=== PATIENT | female | born 1995 | race American Indian/Alaskan Native ===

== ENCOUNTER 2017-01-09 06:53 | Emergency (ER) | payer MEDICAID, SELFPAY ==
[2017-01-09 07:30] VITALS: BP 122/87
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
== END 2017-01-09 09:45 | disposition home or self-care (01) ==
LOC: FB.ED 06:53
DX: F10.129 Alcohol abuse with intoxication, unspecified (principal); F17.210 Nicotine dependence, cigarettes, uncomplicated
CPT/HCPCS: 36415; 80053; 85025; 86140; 99284; G0480

== ENCOUNTER 2017-06-28 17:05 | Emergency (ER) | payer MEDICAID, OTHER, SELFPAY ==
[2017-06-28 17:16] VITALS: BP 108/72
--- NOTE | 2017-06-28 17:25 | EDM.PDOC ---
ED HPI GENERAL MEDICAL PROBLEM - General Chief Complaint: ENT Problem Stated Complaint: SORE THROAT, BODY ACHES Time Seen by Provider: 06/28/17 17:15 Source of Information: Reports: Patient, Old Records History Limitations: Reports: No Limitations - History of Present Illness INITIAL COMMENTS - FREE TEXT/NARRATIVE: Has a mild sore throat, no fever, no rash, rhinorrhea, rare dry cough and a boil. No self tx. Has an appt to see Dr. Gu for tomorrow. Onset: Gradual Onset Date: 06/27/17 Duration: Hour(s):, Getting Worse Location: Reports: Face, Chest, Lower Extremity, Right Quality: Reports: Dull Severity: Mild Improves with: Reports: None Worsens with: Reports: None Context: Reports: Sick Contact (sister ill) Associated Symptoms: Reports: Cough, Rash (boil medial/proximal R thigh). 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) Generalized Pain Score (Numeric/FACES): 8 - Related Data Allergies Allergy/AdvReac Type Severity Reaction Status Date / Time No Known Allergies Allergy Verified 06/28/17 17:12 Home Meds: Home Meds NK [No Known Home Meds] 06/28/17 [History] Past Medical History - Past Health History Medical/Surgical History: Denies Medical/Surgical History HEENT History: Reports: None Cardiovascular History: Reports: None Respiratory History: Reports: None Gastrointestinal History: Reports: Cholelithiasis Genitourinary History: Reports: Other (See Below) Other Genitourinary History: UTI during [employer] 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: Other OB/BYN History: P-2; G-2 Other Musculoskeletal History: 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 Neurological History: Reports: None Psychiatric History: Reports: Depression, Psych Hospitalization(s), Other (See Below) Other Psychiatric History: was hospitalized when she was 13 for depression Endocrine/Metabolic History: Reports: None Hematologic History: Reports: None Immunologic History: Reports: None Oncologic (Cancer) History: Reports: None Dermatologic History: Reports: None - Infectious Disease History Infectious Disease History: Reports: None - Past Surgical History Head Surgeries/Procedures: Reports: None HEENT Surgical History: Reports: None Cardiovascular Surgical History: Reports: None Respiratory Surgical History: Reports: None GI Surgical History: Reports: None Endocrine Surgical History: Reports: None Neurological Surgical History: Reports: None Musculoskeletal Surgical History: Reports: None Oncologic Surgical History: Reports: None Dermatological Surgical History: Reports: None Social & Family History - Family History HEENT: Reports: Cataract Cardiac: Reports: Bypass, Hypertension, [place], Pacemaker, Stent Respiratory: Reports: Asthma : Reports: Dialysis OBGYN: Reports: Musculoskeletal: Reports: Fibromyalgia Endocrine/Metabolic: Reports: Diabetes, type II Oncologic: Reports: Colon - Tobacco Use Smoking Status *Q: Current Every Day Smoker Years of Tobacco use: 5 Packs/Tins Daily: 0.5 Used Tobacco, but Quit: Yes Month Tobacco Last Used: december 2015 Second Hand Smoke Exposure: Yes - Caffeine Use Caffeine Use: Reports: Energy Drinks - Alcohol Use Days Per Week of Alcohol Use: 2 Number of Drinks Per Day: 10 Total Drinks Per Week: 20 - Recreational Drug Use Recreational Drug Use: No ED ROS ENT - Review of Systems Review Of Systems: See Below Constitutional: Reports: No Symptoms HEENT: Reports: Rhinitis, Throat Pain. Denies: Dental Pain, Ear Discharge, Ear Pain, Eye Discharge, Nosebleed, Throat Swelling Respiratory: Reports: Cough. Denies: Shortness of Breath, Wheezing, Pleuritic Chest Pain, Sputum, Hemoptysis Cardiovascular: Reports: No Symptoms GI/Abdominal: Reports: No Symptoms : Reports: No Symptoms Musculoskeletal: Reports: No Symptoms Skin: Reports: Rash (Small boil to the medial/proximal R thigh), Erythema Neurological: Reports: No Symptoms Psychiatric: Reports: No Symptoms ED EXAM, ENT - Physical Exam Exam: See Below Exam Limited By: No Limitations General Appearance: Alert, WD/WN, No Apparent Distress Eye Exam: Bilateral Eye: Normal Inspection Ears: Normal External Exam, Normal Canal, Hearing Grossly Normal, Normal TMs Nose: Clear Rhinorrhea, Nasal Discharge. No: No Blood, Nasal Tenderness, Active Bleeding, Dried Blood Mouth/Throat: Normal Inspection, Normal Lips, Normal Oropharynx Head: Atraumatic, Normocephalic Neck: Normal Inspection, Supple, Non-Tender Respiratory/Chest: No Respiratory Distress, Lungs Clear, Normal Breath Sounds, No Accessory Muscle Use Cardiovascular: Regular Rate, Rhythm, No Edema GI/Abdominal: Soft Back: Normal Inspection Extremities: Normal Inspection, Normal Range of Motion, Non-Tender, No Pedal Edema. No: Pedal Edema, Joint Swelling Neurological: Alert, Oriented, CN II-XII Intact, Normal Cognition, No Motor/ Sensory Deficits Psychiatric: Normal Affect, Normal Mood Skin: Warm, Dry, Intact, Erythema (small boil to the medial/proximal R thigh) Lymphatic: No Adenopathy Course - Vital Signs Last Recorded V/S: Last Vital Signs Temp 36.7 C 06/28/17 17:15 Pulse 89 06/28/17 17:15 Resp 18 06/28/17 17:15 BP 108/72 06/28/17 17:15 Pulse Ox 100 06/28/17 17:15 Departure - Departure Time of Disposition: 17:30 Disposition: Home, Self-Care 01 Condition: Good Clinical Impression: Viral upper respiratory infection, Boil - Discharge Information Referrals: PCP,None [Primary Care Provider] - Forms: ED Department Discharge, ED Return to Work/School Form Additional Instructions: Warm sitz baths several times a day. Take acetaminophen 1000 mg every 6 hrs for pain relief. Keep your appt with Dr. Gu as scheduled. Consider Robitussin DM for cough sx's.
== END 2017-06-28 17:30 | disposition home or self-care (01) ==
LOC: FB.ED 17:05
DX: J06.9 Acute upper respiratory infection, unspecified (principal); L02.425 Furuncle of right lower limb; F17.210 Nicotine dependence, cigarettes, uncomplicated
CPT/HCPCS: 99282

== ENCOUNTER 2018-01-11 04:05 | Emergency (ER) | payer OTHER ==
[2018-01-11] MEDS ORDERED: Ketorolac 60 MG/2 ML SDV IM ONE (05:00)
[2018-01-11] MEDS ORDERED: Acetaminophen 500 MG Tab PO ONE (05:00)
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
[2018-01-11 09:14] VITALS: BP 124/63
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
[2018-01-13 00:09] LABS: CHLAMYDIA TRACHOMATIS, NAA Negative (Negative); NEISSERIA GONORRHOEAE, NAA Negative (Negative)
== END 2018-01-11 09:08 | disposition home or self-care (01) ==
LOC: FB.ED 04:05
DX: O9A.212 Injury, poisoning and certain other consequences of external causes complicating pregnancy, second trimester (principal); S00.93XA Contusion of unspecified part of head, initial encounter; S40.022A Contusion of left upper arm, initial encounter; S20.219A Contusion of unspecified front wall of thorax, initial encounter; S30.1XXA Contusion of abdominal wall, initial encounter; N76.0 Acute vaginitis; B96.89 Other specified bacterial agents as the cause of diseases classified elsewhere; Y07.03 Male partner, perpetrator of maltreatment and neglect; Y04.8XXA Assault by other bodily force, initial encounter; Z3A.20 20 weeks gestation of pregnancy
CPT/HCPCS: 76805; 81001; 87210; 87491; 87591; 96372; 99284; A9270-GY; J1885

== ENCOUNTER 2018-05-20 16:16 | Inpatient (IN) | payer MEDICAID ==
[2018-05-20] MEDS ORDERED: Nalbuphine 10 MG/1 ML Vial IM ONE (17:44)
[2018-05-20] MEDS ORDERED: Nalbuphine 10 MG/1 ML Vial IM PRN (19:46)
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
[2018-05-20] MEDS ORDERED: Lactated Ringers 1,000 ML IV SCH (20:00)
[2018-05-20] MEDS: Sodium Chloride 0.9% 10 ML Syringe FLUSH PRN (20:21)
[2018-05-20] MEDS ORDERED: cefTRIAXone 1,000 MG VIAL IVPUSH ONE (20:50)
[2018-05-20] MEDS ORDERED: Nalbuphine 10 MG/1 ML Vial IVPUSH PRN (21:01)
[2018-05-21] MEDS ORDERED: Oxytocin 10 Units/1 ML SDV IM ONE (02:14)
[2018-05-21] MEDS: Ibuprofen 800 MG Tab PO PRN ×3 (03:19→16:46)
--- NOTE | 2018-05-21 08:29 | DEL ---
DATE OF DELIVERY: 05/20/2018 HISTORY: Svitlana is a 22-year-old, 4, para 2, woman at term, who came in labor. She was placed on a monitor and initially was dilated 2 cm. She progressed rapidly to a precipitous delivery and spontaneously delivered a female infant with the assistance of the nursing staff. The cord was clamped and cut. The baby was taken to the [facility] warmer, dried and stimulated. The placenta was delivered spontaneously. I was called for the precipitous delivery and arrived a few minutes after the delivery. The baby was on the [facility] warmer with good color, excellent tone, breathing spontaneously and with O2 saturation of 95% on room air. [place] exam was normal. Attention was turned to Mother. She had a nice firmly contracted uterus just below the umbilicus. Perineal exam revealed a tiny first-degree laceration that required no sutures and no excessive bleeding was present. Routine cares were provided for mother and baby per Dr. Gu, who is the regular physician. /[id number] EMANUEL/CALE [place]
[2018-05-21] MEDS: Sodium Chloride 0.9% 10 ML Syringe FLUSH PRN ×2 (10:11→20:54)
[2018-05-21] MEDS: Sertraline 100 MG Tab PO SCH ×2 (10:12→21:03)
[2018-05-21] MEDS: Prenatal Multivitamin with Calcium/Folic Acid/Fe Fumarate Cap PO SCH (10:12)
[2018-05-21] MEDS: Ferrous Sulfate 325 MG Tab PO SCH (10:12)
--- NOTE | 2018-05-21 17:16 | PCM.PNPP ---
- General Info Date of Service: 05/21/18 Subjective Update: patient doing well. Functional Status: Reports: Pain Controlled, Tolerating Diet - Review of Systems General: Reports: No Symptoms HEENT: Reports: No Symptoms Pulmonary: Reports: No Symptoms Cardiovascular: Reports: No Symptoms Gastrointestinal: Reports: No Symptoms Genitourinary: Reports: No Symptoms Musculoskeletal: Reports: No Symptoms Skin: Reports: No Symptoms Neurological: Reports: No Symptoms Psychiatric: Reports: No Symptoms - General Info Date of Service: 05/21/18 - Patient Data Vital Signs - Most Recent: Last Vital Signs Temp 97.9 F 05/21/18 08:44 Pulse 90 05/21/18 08:44 Resp 20 05/21/18 08:44 BP 118/67 05/21/18 08:44 Pulse Ox 100 05/21/18 08:44 Weight - Most Recent: 78.925 kg I&O - Last 24 Hours: Intake & Output 05/21/18 05/21/18 05/21/18 06:59 14:59 22:59 Intake Total 480 Output Total 1000 Balance -1000 480 Lab Results - Last 24 Hours: Laboratory Results - last 24 hr 05/20/18 05/20/18 05/20/18 Range/Units 20:00 20:00 20:29 WBC 12.8 H (4.5-12.0) X10-3/uL RBC 3.61 (3.23-5.20) x10(6)uL Hgb 10.0 L D (11.5-15.5) g/dL Hct 29.9 L D (30.0-51.3) % MCV 82.8 (80-96) fL MCH 27.8 (27.7-33.6) pg MCHC 33.5 (32.2-35.4) g/dL RDW 14.6 (11.5-15.5) % Plt Count 214 (125-369) X10(3)uL MPV 9.0 (7.4-10.4) fL Add Manual Diff Yes Neutrophils % (Manual) 84 H (46-82) % Band Neutrophils % 3 (0-6) % Lymphocytes % (Manual) 5 L (13-37) % Monocytes % (Manual) 8 (4-12) % Nucleated RBCs 1 H (0-0) /100WBC Sodium 131 L (135-145) mmol/L Potassium 3.5 (3.5-5.3) mmol/L Chloride 100 (100-110) mmol/L Carbon Dioxide 18 L (21-32) mmol/L BUN 6 L (7-18) mg/dL Creatinine 0.7 (0.55-1.02) mg/dL Est Cr Clr Drug Dosing 111.51 mL/min Estimated GFR (MDRD) > 60 (>60) BUN/Creatinine Ratio 8.6 L (9-20) Glucose 107 (80-116) mg/dL Calcium 8.0 L (8.6-10.2) mg/dL Total Bilirubin 0.3 (0.1-1.3) mg/dL AST 14 (5-25) IU/L ALT 18 (12-36) U/L Alkaline Phosphatase 232 H (56-112) IU/L Total Protein 7.1 (6.0-8.0) g/dL Albumin 2.1 L (3.5-5.2) g/dL Globulin 5.0 g/dL Albumin/Globulin Ratio 0.4 Urine Color Yellow (YELLOW) Urine Appearance Clear (CLEAR) Urine pH 7.0 H (5.0-6.5) Ur Specific [place] 1.005 L (1.010-1.025) Urine Protein Negative (NEGATIVE) mg/dL Urine Glucose (UA) Normal (NEGATIVE) mg/dL Urine Ketones Negative (NEGATIVE) mg/dL Urine Occult Blood Large H (NEGATIVE) Urine Nitrite Negative (NEGATIVE) Urine Bilirubin Negative (NEGATIVE) Urine Urobilinogen Normal (NEGATIVE) mg/dL Ur Leukocyte Esterase Moderate H (NEGATIVE) Urine RBC 20-30 H (0) Urine WBC 5-10 (0) Ur Squamous Epith Cells Moderate H (NS,R,O) Urine Bacteria Moderate H (NS) Hyaline Casts Moderate H (NS) Med Orders - Current: Current Medications Ceftriaxone Sodium (Rocephin) 1,000 mg IVPUSH Q24H [facility] Ferrous Sulfate (Ferrous Sulfate) 325 mg PO DAILY ANNE Last Admin: 05/21/18 10:12 Dose: 325 mg Lactated Ringer's (Ringers, Lactated) 1,000 mls @ 75 mls/hr IV ASDIRECTED ANNE Last Admin: 05/20/18 20:19 Dose: 75 mls/hr Ibuprofen (Motrin) 800 mg PO Q6H PRN PRN Reason: Pain Last Admin: 05/21/18 16:46 Dose: 800 mg Nalbuphine HCl (Nubain) 10 mg IVPUSH Q3H PRN PRN Reason: Pain Last Admin: 05/20/18 21:35 Dose: 10 mg Multivit/Folic Acid/Iron (-U) 1 each PO DAILY [facility] Last Admin: 05/21/18 10:12 Dose: 1 each Sertraline HCl (Zoloft) 100 mg PO DAILY [facility] Last Admin: 05/21/18 10:12 Dose: Not Given Sodium Chloride (Saline Flush) 10 ml FLUSH ASDIRECTED PRN PRN Reason: Keep Vein Open Last Admin: 05/21/18 10:11 Dose: 10 ml Discontinued Medications Ceftriaxone Sodium (Rocephin) 1,000 mg IVPUSH ONETIME ONE Stop: 05/20/18 20:51 Last Admin: 05/20/18 20:59 Dose: 1,000 mg Nalbuphine HCl (Nubain) 10 mg IM ONETIME ONE Stop: 05/20/18 17:45 Last Admin: 05/20/18 18:05 Dose: 10 mg Nalbuphine HCl (Nubain) 10 mg IM Q3H PRN PRN Reason: Pain Oxytocin (Pitocin) 10 unit IM ONETIME ONE Stop: 05/21/18 02:15 Last Admin: 05/20/18 23:35 Dose: 10 unit - Interaction Disposition, : [place] in Room with Family Infant Interaction: Holding Infant Infant Feeding: Attempted ; Nursed Fair/Poor Support Person: Friend - Recovery Exam Fundal Tone: Firms with Massage Fundal Level: At Umbilicus Fundal Placement: Midline Lochia Amount: Small Lochia Color: Rubra/Red Perineum Description: Intact, Minimal Bruising/Swelling Episiotomy/Laceration: None Bladder Status: Voiding Urinary Elimination: Voided - Exam General: Alert, Oriented HEENT: Pupils Equal Neck: Supple Lungs: Clear to Auscultation, Normal Respiratory Effort Cardiovascular: Regular Rate, Regular Rhythm GI/Abdominal Exam: Normal Bowel Sounds, Soft, Non-Tender, No Organomegaly, No Distention, No Abnormal Bruit, No Mass, Pelvis Stable Extremities: Normal Inspection, Normal Range of Motion, Non-Tender, No Pedal Edema, Normal Capillary Refill Skin: Warm, Dry, Intact Wound/Incisions: Healing Well Neurological: No New Focal Deficit Psy/Mental Status: Alert, Normal Affect, Normal Mood - Problem List & Annotations (1) Normal labor SNOMED Code(s): 88589809 Code(s): O80 - ENCOUNTER FOR FULL-TERM UNCOMPLICATED DELIVERY; Z37.9 - OUTCOME OF DELIVERY, UNSPECIFIED Status: Acute Current Visit: Yes (2) UTI in SNOMED Code(s): 071556104 Code(s): O23.40 - UNSP INFECTION OF URINARY TRACT IN , UNSP TRIMESTER Status: Acute Current Visit: Yes Qualifiers: Trimester: third trimester Qualified Code(s): O23.43 - Unspecified infection of urinary tract in , third trimester (3) Normal delivery SNOMED Code(s): 34075334, 269391443 Code(s): O80 - ENCOUNTER FOR FULL-TERM UNCOMPLICATED DELIVERY Status: Acute Current Visit: Yes (4) Precipitous delivery SNOMED Code(s): 227960944 Code(s): O62.3 - PRECIPITATE LABOR Status: Acute Current Visit: Yes - Problem List Review Problem List Initiated/Reviewed/Updated: Yes - My Orders Last 24 Hours: My Active Orders 05/20/18 16:34 Patient Status [ADT] Routine Resuscitation Status Routine 05/20/18 19:48 Sodium Chloride 0.9% [Saline Flush] 10 ml FLUSH ASDIRECTED PRN Peripheral IV Insertion Adult [OM.PC] Routine 05/20/18 20:00 Lactated Ringers [Ringers, Lactated] 1,000 ml IV ASDIRECTED 05/20/18 20:29 CULTURE URINE [RM] Routine 05/20/18 21:01 Nalbuphine [Nubain] 10 mg IVPUSH Q3H PRN 05/21/18 00:59 Ibuprofen [Motrin] 800 mg PO Q6H PRN 05/21/18 08:44 Vital Signs [RC] PFP Perineal Care [OM.PC] Per Unit Routine 05/21/18 09:00 Ferrous Sulfate 325 mg PO DAILY Vit/FA/Fe Fumarate [-U] 1 each PO DAILY Sertraline [Zoloft] 100 mg PO DAILY 05/21/18 21:00 cefTRIAXone [Rocephin] 1,000 mg IVPUSH Q24H 05/21/18 Breakfast Regular Diet [DIET] 05/22/18 05:11 CBC W/O DIFF,HEMOGRAM [HEME] AM - Plan Plan:: CBC in AM.Motrin PRN
[2018-05-21] MEDS ORDERED: cefTRIAXone 1,000 MG VIAL IVPUSH SCH (21:00)
--- NOTE | 2018-05-22 08:23 | PCM.PNPP ---
- General Info Date of Service: 05/22/18 Subjective Update: She feels tired, but denies dizziness or headache. Moderate lochia reported. - Review of Systems Pulmonary: Reports: No Symptoms Cardiovascular: Reports: No Symptoms Gastrointestinal: Reports: No Symptoms - General Info Date of Service: 05/22/18 - Patient Data Vital Signs - Most Recent: Last Vital Signs Temp 97.7 F 05/22/18 08:13 Pulse 71 05/22/18 08:13 Resp 18 05/22/18 08:13 BP 121/64 05/22/18 08:13 Pulse Ox 98 05/22/18 01:00 Weight - Most Recent: 78.925 kg Lab Results - Last 24 Hours: Laboratory Results - last 24 hr 05/22/18 Range/Units 06:15 WBC 13.7 H (4.5-12.0) X10-3/uL RBC 2.75 L (3.23-5.20) x10(6)uL Hgb 7.5 L (11.5-15.5) g/dL Hct 22.9 L (30.0-51.3) % MCV 83.2 (80-96) fL MCH 27.4 L (27.7-33.6) pg MCHC 32.9 (32.2-35.4) g/dL RDW 14.7 (11.5-15.5) % Plt Count 206 (125-369) X10(3)uL Micro Results - Last 24 Hours: Microbiology 05/20/18 20:29 Urine Culture - Preliminary Urine, Voided MIXED POSITIVE TAYLA DAY 1 Med Orders - Current: Current Medications Ceftriaxone Sodium (Rocephin) 1,000 mg IVPUSH Q24H [facility] Last Admin: 05/21/18 20:54 Dose: 1,000 mg Ferrous Sulfate (Ferrous Sulfate) 325 mg PO DAILY [facility] Last Admin: 05/21/18 10:12 Dose: 325 mg Sodium Chloride (Normal Saline) 250 mls @ 100 mls/hr IV ASDIRECTED [facility] Ibuprofen (Motrin) 800 mg PO Q6H PRN PRN Reason: Pain Last Admin: 05/21/18 16:46 Dose: 800 mg Nalbuphine HCl (Nubain) 10 mg IVPUSH Q3H PRN PRN Reason: Pain Last Admin: 05/20/18 21:35 Dose: 10 mg Multivit/Folic Acid/Iron (-U) 1 each PO DAILY [facility] Last Admin: 05/21/18 10:12 Dose: 1 each Sertraline HCl (Zoloft) 100 mg PO DAILY [facility] Last Admin: 05/21/18 21:03 Dose: 100 mg Sodium Chloride (Saline Flush) 10 ml FLUSH ASDIRECTED PRN PRN Reason: Keep Vein Open Last Admin: 05/21/18 20:54 Dose: 10 ml Discontinued Medications Ceftriaxone Sodium (Rocephin) 1,000 mg IVPUSH ONETIME ONE Stop: 05/20/18 20:51 Last Admin: 05/20/18 20:59 Dose: 1,000 mg Lactated Ringer's (Ringers, Lactated) 1,000 mls @ 75 mls/hr IV ASDIRECTED [facility] Last Admin: 05/20/18 20:19 Dose: 75 mls/hr Nalbuphine HCl (Nubain) 10 mg IM ONETIME ONE Stop: 05/20/18 17:45 Last Admin: 05/20/18 18:05 Dose: 10 mg Nalbuphine HCl (Nubain) 10 mg IM Q3H PRN PRN Reason: Pain Oxytocin (Pitocin) 10 unit IM ONETIME ONE Stop: 05/21/18 02:15 Last Admin: 05/20/18 23:35 Dose: 10 unit - Infant Interaction Disposition, : in Room with Family Interaction: Holding Feeding: Attempted ; Nursed Fair/Poor Support Person: Friend - Recovery Exam Fundal Tone: Firms with Massage Fundal Level: At Umbilicus Fundal Placement: Midline Lochia Amount: Small, Moderate Lochia Color: Rubra/Red Perineum Description: Intact, Minimal Bruising/Swelling Episiotomy/Laceration: None Bladder Status: Voiding Urinary Elimination: Voided - Exam General: Alert, Oriented Neck: Supple Lungs: Clear to Auscultation Cardiovascular: Regular Rate - Problem List & Annotations (1) Normal labor SNOMED Code(s): 20136753 Code(s): O80 - ENCOUNTER FOR FULL-TERM UNCOMPLICATED DELIVERY; Z37.9 - OUTCOME OF DELIVERY, UNSPECIFIED Status: Acute Current Visit: Yes (2) UTI in SNOMED Code(s): 467175385 Code(s): O23.40 - UNSP INFECTION OF URINARY TRACT IN , UNSP TRIMESTER Status: Acute Current Visit: Yes Qualifiers: Trimester: third trimester Qualified Code(s): O23.43 - Unspecified infection of urinary tract in , third trimester (3) Normal delivery SNOMED Code(s): 93500298, 856852701 Code(s): O80 - ENCOUNTER FOR FULL-TERM UNCOMPLICATED DELIVERY Status: Acute Current Visit: Yes (4) Precipitous delivery SNOMED Code(s): 149629887 Code(s): O62.3 - PRECIPITATE LABOR Status: Acute Current Visit: Yes (5) Anemia SNOMED Code(s): 162154988 Code(s): D64.9 - ANEMIA, UNSPECIFIED Status: Acute Current Visit: Yes - Problem List Review Problem List Initiated/Reviewed/Updated: Yes - My Orders Last 24 Hours: My Active Orders 05/21/18 08:44 Vital Signs [RC] PFP Perineal Care [OM.PC] Per Unit Routine 05/21/18 09:00 Ferrous Sulfate 325 mg PO DAILY Vit/FA/Fe Fumarate [-U] 1 each PO DAILY Sertraline [Zoloft] 100 mg PO DAILY 05/21/18 21:00 cefTRIAXone [Rocephin] 1,000 mg IVPUSH Q24H 05/22/18 08:19 RED BLOOD CELLS LP [BBK] Urgent TYPE AND SCREEN [BBK] Urgent Transfuse PRBC [Transfuse Red Blood Cells] [COMM] Urgent 05/22/18 08:30 Sodium Chloride 0.9% [Normal Saline] 250 ml IV ASDIRECTED - Plan Plan:: Transfusion one unit, and then discharge home today follow-up in the office in 2 weeks.
[2018-05-22] MEDS ORDERED: Sodium Chloride 0.9% 250 ML IV SCH (08:30)
[2018-05-22] MEDS: Prenatal Multivitamin with Calcium/Folic Acid/Fe Fumarate Cap PO SCH (09:15)
[2018-05-22] MEDS: Ferrous Sulfate 325 MG Tab PO SCH (09:15)
[2018-05-22] MEDS: Sertraline 100 MG Tab PO SCH (09:16)
[2018-05-22] MEDS: Ibuprofen 800 MG Tab PO PRN (13:15)
[2018-05-22 14:45] VITALS: BP 118/73
--- NOTE | 2018-05-24 07:57 | DISCH ---
DISCHARGE DATE: 05/22/2018 REASON FOR ADMISSION: Early labor. DISCHARGE DIAGNOSES: 1. Precipitous delivery. 2. Anemia . BRIEF HISTORY: A 22-year-old female, who came in at 2 cm and eventually delivered precipitously on Wednesday night. She did well but had a low hemoglobin of 7.5. She got 1 unit of blood and was discharged home on iron supplementation and vitamins and advised to follow up in the office within 2 days. TIME SPENT: I spent more than 35 minutes in the discharge of the patient. /[id number] RAINE/CALE
== END 2018-05-22 15:00 | disposition home or self-care (01) | DRG 774 ==
LOC: FB.OBCHECK 16:16 → FB.OB 16:17 → FB.OBCHECK 23:13 → FB.OB 23:14
PROVIDERS: ADMIT Family Medicine; ATTEND Family Medicine
PROC: 10E0XZZ Delivery of Products of Conception, External Approach (ICD-10-PCS; principal; 2018-05-20)
PROC: 30233N1 Transfusion of Nonautologous Red Blood Cells into Peripheral Vein, Percutaneous Approach (ICD-10-PCS; 2018-05-22)
DX: O75.3 Other infection during labor (principal); O62.3 Precipitate labor; O70.0 First degree perineal laceration during delivery; Z3A.38 38 weeks gestation of pregnancy; Z37.0 Single live birth; O90.81 Anemia of the puerperium; Z87.891 Personal history of nicotine dependence; O99.344 Other mental disorders complicating childbirth; F32.9 Major depressive disorder, single episode, unspecified
CPT/HCPCS: 36415; 36430; 59409; 80053; 81001; 85025; 85027; 86850; 86900; 86901; 86920; 86922; 87086; 99211; A9270-GY; J0696; J2300; J2590; J7050; J7120; P9016

== ENCOUNTER 2019-09-24 19:37 | Emergency (ER) | payer OTHER ==
[2019-09-24 20:09] VITALS: BP 121/76; PULSE 106
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
[2019-09-24] MEDS ORDERED: Sodium Chloride 0.9% 1,000 ML IV SCH (20:45)
[2019-09-24] MEDS ORDERED: Iopamidol 755 Mg/ML 100 ML Bottle IV ONE (20:49)
[2019-09-24] MEDS ORDERED: Acetaminophen 500 MG Tab PO ONE (21:03)
--- NOTE | 2019-09-25 12:23 | US ---
INDICATION: Right upper quadrant abdominal pain for 3 days. RIGHT UPPER QUADRANT/GALLBLADDER ULTRASOUND: Multiple ultrasonic images were obtained with 2D and color flow imaging, 09/24/19 - no comparisons. The gallbladder was not enlarged measuring 5.2 x 2.8 x 3.2 cm but was filled with calculi. There was a negative ultrasonic Massey's sign and no pericholecystic fluid or wall thickening. Common bile duct was normal in caliber at 5.7 mm. The right kidney appeared normal measuring 12.3 x 4.3 x 5.6 cm. The pancreas was not well seen in the area of the tail, appeared grossly normal in the body and some of the head area that was visualized. The liver appeared normal with no focal defects. No mass lesions or free fluid collections were identified. IMPRESSION: Cholelithiasis. No definite evidence of cholecystitis identified. MTDD
--- NOTE | 2019-09-25 12:33 | US ---
INDICATION: Pelvic pain. OB ULTRASOUND, 2ND OR 3RD TRIMESTER: Utilizing 2D real-time, M-mode, and color flow imaging ultrasound examination of the uterus was obtained - no comparisons were available for this gestation. Grossly normal parameters included lateral ventricle, cerebellum, cisterna magna, stomach, diaphragm, bladder, kidneys, 3-vessel umbilical cord, spine, thorax except for RVOT, with regular heart rate of 140 bpm. The upper lip was not well visualized. Extremities were accounted for. Longitudinal lie with cephalic presentation, spine to the maternal left is noted. A normal amount of amniotic fluid is seen. The placenta is anterofundal grade 2 without evidence of previa. The right ovary showed evidence of a corpus luteum cyst measuring 2.3 x 2 x 2.4 cm. The cervix was not well delineated but appeared grossly normal. The left ovary was not demonstrated. No adnexal mass lesions or free fluid collections were demonstrated. The gestational age measurements were fairly closely grouped: BPD 18 weeks, HC 18 weeks 1 day, AC 17 weeks 3 days, FL 18 weeks and average 18 weeks, which is not compatible with the LMP GA of 6 weeks 6 days. ED by ultrasound is 02/25/20. Estimated weight was 203 g (7 oz). There is suggestion of a [id number] sized placenta abruption at the maternal right lower quadrant. IMPRESSION: 1. Essentially normal IUP of 18 weeks. The face was not well seen, nor was the right ventricular outflow tract with cord insertion. 2. JAMEY by ultrasound was 02/25/20. 3. There is a large discrepancy compared with the LMP GA. 4. Question a very minimal placenta abruption on the right lower aspect of the placenta at the right lower quadrant. MTDD
== END 2019-09-24 22:53 | disposition home or self-care (01) ==
LOC: FB.ED 19:37
DX: K80.20 Calculus of gallbladder without cholecystitis without obstruction (principal); K59.00 Constipation, unspecified; E86.0 Dehydration; F32.9 Major depressive disorder, single episode, unspecified; F41.9 Anxiety disorder, unspecified; F17.210 Nicotine dependence, cigarettes, uncomplicated; Z33.1 Pregnant state, incidental; Z79.899 Other long term (current) drug therapy
CPT/HCPCS: 36415; 76705; 76805; 80053; 81003; 81025; 82150; 83690; 85025; 96360; 99284; A9270; J7030

== ENCOUNTER 2020-02-17 16:10 | Emergency (ER) | payer OTHER ==
--- NOTE | 2020-02-17 18:12 | ER ---
DATE SEEN: 02/17/2020 CHIEF COMPLAINT: Hemorrhoid. HISTORY OF PRESENT ILLNESS: This is a 24-year-old female who delivered vaginally 3 days ago, complains of a hemorrhoid that is painful. She also has some constipation. No fever. MEDICATIONS: Reviewed. SOCIAL HISTORY: Does not smoke. PHYSICAL EXAMINATION: GENERAL: She is nontoxic and afebrile. RECTAL: Reveal a large third-degree hemorrhoid that is thrombosed. IMPRESSION: Hemorrhoid, third-degree. PLAN: I discussed thrombectomy. She agreed. I prepped the area, used lidocaine for anesthesia, and I was able to evacuate several clots. I used a 4 x 4 to put pressure and advised on sitz baths and follow up in the office next week. /[id number] RAINE/CALE
[2020-02-17 19:14] VITALS: BP 136/94; PULSE 84
--- NOTE | 2020-02-28 12:05 | ER ---
DATE SEEN: 02/17/2020 ADDENDUM: PROCEDURE NOTE: Thrombectomy of thrombosed hemorrhoid, third degree. Preparation: The patient was placed in the left lateral position. The rectal area was exposed. Chlorhexidine was used for prep. Lidocaine was infiltrated. I then used a scalpel to make an incision about a centimeter long, and I used mosquito forceps to evacuate several clots. She tolerated the procedure well, and a 4x4 was placed to achieve hemostasis. She was advised on sitz baths and follow up in the office next week. /[id number] RAINE/HAZELL
== END 2020-02-17 17:10 | disposition home or self-care (01) ==
LOC: FB.ED 16:10
DX: O87.2 Hemorrhoids in the puerperium (principal)
CPT/HCPCS: 46083; 99283-25

== ENCOUNTER 2022-02-16 18:07 | Emergency (ER) | payer SELFPAY ==
[2022-02-16] MEDS ORDERED: Acetaminophen/HYDROcodone 325-5 MG Tab PO ONE (18:08)
[2022-02-16] MEDS ORDERED: Penicillin V Potassium 250 MG Tab PO STA (18:32)
[2022-02-16 18:50] VITALS: BP 144/90; PULSE 83
== END 2022-02-16 18:45 | disposition home or self-care (01) ==
LOC: FB.ED 18:07
DX: K04.7 Periapical abscess without sinus (principal)
CPT/HCPCS: 99281; 99282; A9270-GY

== ENCOUNTER 2023-02-27 15:14 | Emergency (ER) | payer OTHER ==
[2023-02-27] MEDS ORDERED: Sulfamethoxazole/Trimethoprim 800-160 MG Tab PO ONE ×2 (15:15→16:05)
[2023-02-27 15:40] LABS: BASOPHILS PERCENT AUTO 0.3 % (0.2-1.5); EOSINOPHILS ABSOLUTE AUTO 0.1 x10-3/uL (0.0-0.8); EOSINOPHILS PERCENT AUTO 0.8 % (0.6-8.1); HEMATOCRIT 37.2 % (34.2-48.2); HEMOGLOBIN 11.9 g/dL (11.4-15.5); LYMPHOCYTES PERCENT AUTO 7.7 % (18.4-52.1); MEAN CORPUSCULAR HEMOGLOBIN 26.2 pg (23.9-33.9); MEAN CORPUSCULAR HGB CONC 31.9 g/dL (31.9-34.8); MEAN PLATELET VOLUME 7.4 fL (7.1-12.4); NEUTROPHILS ABSOLUTE AUTO 11.5 x10-3/uL (1.5-6.3); NEUTROPHILS PERCENT AUTO 84.2 % (30.8-76.2); PLATELET COUNT,PLT 327 x10(3)uL (151-488); RED BLOOD CELL COUNT 4.54 x10(6)uL (3.60-5.20); RED CELL DISTRIBUTION WIDTH 18.6 % (12.3-16.5); WHITE BLOOD CELL COUNT,WBC 13.7 x10-3/uL (3.0-10.3)
[2023-02-27 15:42] LABS: BLOOD UREA NITROGEN,BUN 10 mg/dL (7-18); BUN/CREATININE RATIO 12.5 (9-20); CALCIUM 8.8 mg/dL (8.6-10.2); CARBON DIOXIDE,CO2 28 mmol/L (21-32); CHLORIDE,CL 102 mmol/L (100-110); CREATININE 0.8 mg/dL (0.55-1.02); ESTIMATED GFR 102 mL/min (>60); GLUCOSE RANDOM 75 mg/dL (80-116); POTASSIUM,K 3.4 mmol/L (3.5-5.3); SODIUM,NA 139 mmol/L (135-145)
[2023-02-27 15:42] LABS: BILIRUBIN,URINE NEGATIVE (NEGATIVE); GLUCOSE,URINE NORMAL (NORMAL); KETONES,URINE NEGATIVE (NEGATIVE); LEUKOCYTE ESTERASE,URINE LARGE (NEGATIVE); NITRITE,URINE NEGATIVE (NEGATIVE); OCCULT BLOOD,URINE LARGE (NEGATIVE); PROTEIN,URINE NEGATIVE (NEGATIVE); UROBILINOGEN,URINE NORMAL (NEGATIVE)
[2023-02-27 15:44] LABS: APPEARANCE,URINE SLIGHTLY CLOUDY (CLEAR); BACTERIA,URINE MODERATE (NS); COLOR,URINE YELLOW (YELLOW); RBC,URINE 20-30 (0-5); SQUAMOUS EPITHELIAL CELLS,UR FEW (NS,R,O); WBC,URINE 40-50 (0-5)
[2023-02-27 15:54] VITALS: BP 117/80; PULSE 89
[2023-02-27 15:54] LABS: A/G RATIO 0.9; ALANINE AMINOTRANSFERASE,ALT 25 U/L (12-36); ALBUMIN 3.9 g/dL (3.5-5.2); ALKALINE PHOSPHATASE 98 IU/L (56-112); AMYLASE 34 U/L (25-115); ASPARTATE AMNIOTRANSFERASE,AST 18 IU/L (5-25); BILIRUBIN TOTAL 0.3 mg/dL (0.1-1.3); PROTEIN TOTAL,TP 8.1 g/dL (6.0-8.0)
[2023-02-27] MEDS ORDERED: Acetaminophen/HYDROcodone 325-5 MG Tab PO ONE (16:04)
[2023-02-27] MEDS ORDERED: Ondansetron 4 MG Tab.DIS PO STA (16:04)
[2023-02-27] MEDS ORDERED: Potassium Chloride 20 MEQ Tab.ER PO ONE (16:05)
== END 2023-02-27 16:40 | disposition home or self-care (01) ==
LOC: FB.ED 15:14
DX: N39.0 Urinary tract infection, site not specified (principal); K80.20 Calculus of gallbladder without cholecystitis without obstruction; E87.6 Hypokalemia
CPT/HCPCS: 36415; 80053; 81001; 82150; 83690; 85025; 87086; 99284; A9270; Q0162

== ENCOUNTER 2023-04-01 23:43 | Emergency (ER) | payer OTHER ==
[2023-04-01] MEDS ORDERED: hydrOXYzine HCl 50 MG/ML SDV IM ONE (23:55)
[2023-04-01] MEDS ORDERED: Morphine 4 MG/ML VIAL IM ONE (23:55)
[2023-04-02 00:13] LABS: BASOPHILS ABSOLUTE AUTO 0.1 x10-3/uL (0.0-0.1); BASOPHILS PERCENT AUTO 0.7 % (0.2-1.5); EOSINOPHILS ABSOLUTE AUTO 0.3 x10-3/uL (0.0-0.8); EOSINOPHILS PERCENT AUTO 3.7 % (0.6-8.1); HEMATOCRIT 37.2 % (34.2-48.2); HEMOGLOBIN 12.3 g/dL (11.4-15.5); LYMPHOCYTES ABSOLUTE AUTO 1.9 x10-3/uL (1.0-4.4); LYMPHOCYTES PERCENT AUTO 25.2 % (18.4-52.1); MEAN CORPUSCULAR HEMOGLOBIN 27.1 pg (23.9-33.9); MEAN CORPUSCULAR HGB CONC 33.1 g/dL (31.9-34.8); MEAN CORPUSCULAR VOLUME 82.1 fL (76.7-100.5); MEAN PLATELET VOLUME 7.8 fL (7.1-12.4); MONOCYTES ABSOLUTE AUTO 0.5 x10-3/uL (0.3-1.0); NEUTROPHILS ABSOLUTE AUTO 4.8 x10-3/uL (1.5-6.3); NEUTROPHILS PERCENT AUTO 63.4 % (30.8-76.2); PLATELET COUNT,PLT 358 x10(3)uL (151-488); RED BLOOD CELL COUNT 4.53 x10(6)uL (3.60-5.20); RED CELL DISTRIBUTION WIDTH 18.9 % (12.3-16.5); WHITE BLOOD CELL COUNT,WBC 7.5 x10-3/uL (3.0-10.3)
[2023-04-02 00:22] LABS: BLOOD UREA NITROGEN,BUN 13 mg/dL (7-18); BUN/CREATININE RATIO 14.4 (9-20); CALCIUM 9.2 mg/dL (8.6-10.2); CARBON DIOXIDE,CO2 30 mmol/L (21-32); CHLORIDE,CL 103 mmol/L (100-110); CREATININE 0.9 mg/dL (0.55-1.02); EST CRCL DRUG DOSING (CG) 82.99 mL/min; ESTIMATED GFR 89 mL/min (>60); GLUCOSE RANDOM 97 mg/dL (80-116); SODIUM,NA 140 mmol/L (135-145)
[2023-04-02 00:28] LABS: ALANINE AMINOTRANSFERASE,ALT 33 U/L (12-36); ALBUMIN 3.9 g/dL (3.5-5.2); ALKALINE PHOSPHATASE 107 IU/L (56-112); ASPARTATE AMNIOTRANSFERASE,AST 16 IU/L (5-25); BILIRUBIN TOTAL 0.2 mg/dL (0.1-1.3); PROTEIN TOTAL,TP 7.9 g/dL (6.0-8.0)
[2023-04-02] MEDS ORDERED: HYDROmorphone 2 MG/ML SDV IM ONE (00:45)
[2023-04-02 02:22] VITALS: BP 129/90; PULSE 88
== END 2023-04-02 01:25 | disposition home or self-care (01) ==
LOC: FB.ED 23:43
DX: R10.84 Generalized abdominal pain (principal)
CPT/HCPCS: 36415; 80053; 83690; 85025; 96372; 99283; 99284; J1170; J2270; J3410

== ENCOUNTER 2023-05-02 22:07 | Emergency (ER) | payer OTHER ==
[2023-05-02] MEDS ORDERED: hydrOXYzine HCl 50 MG/ML SDV IM ONE (22:30)
[2023-05-02] MEDS ORDERED: Ketorolac 30 MG/ML SDV IM ONE (22:30)
[2023-05-02 22:57] VITALS: BP 132/87; PULSE 91
== END 2023-05-02 22:50 | disposition home or self-care (01) ==
LOC: FB.ED 22:07
DX: S20.213A Contusion of bilateral front wall of thorax, initial encounter (principal); W20.8XXA Other cause of strike by thrown, projected or falling object, initial encounter
CPT/HCPCS: 93005; 96372; 99283; J1885; J3410

== ENCOUNTER 2023-05-13 20:59 | Emergency (ER) | payer OTHER ==
[2023-05-13 21:34] LABS: BASOPHILS PERCENT AUTO 0.6 % (0.2-1.5); EOSINOPHILS ABSOLUTE AUTO 0.2 x10-3/uL (0.0-0.8); EOSINOPHILS PERCENT AUTO 3.5 % (0.6-8.1); HEMOGLOBIN 11.4 g/dL (11.4-15.5); LYMPHOCYTES ABSOLUTE AUTO 1.7 x10-3/uL (1.0-4.4); LYMPHOCYTES PERCENT AUTO 27.7 % (18.4-52.1); MEAN CORPUSCULAR HEMOGLOBIN 27.4 pg (23.9-33.9); MEAN CORPUSCULAR HGB CONC 32.6 g/dL (31.9-34.8); MEAN CORPUSCULAR VOLUME 84.1 fL (76.7-100.5); MEAN PLATELET VOLUME 7.4 fL (7.1-12.4); MONOCYTES ABSOLUTE AUTO 0.4 x10-3/uL (0.3-1.0); MONOCYTES PERCENT AUTO 7.3 % (4.4-15.7); NEUTROPHILS ABSOLUTE AUTO 3.6 x10-3/uL (1.5-6.3); NEUTROPHILS PERCENT AUTO 60.9 % (30.8-76.2); PLATELET COUNT,PLT 414 x10(3)uL (151-488); RED BLOOD CELL COUNT 4.16 x10(6)uL (3.60-5.20); RED CELL DISTRIBUTION WIDTH 18.6 % (12.3-16.5)
[2023-05-13 21:39] LABS: BLOOD UREA NITROGEN,BUN 9 mg/dL (7-18); BUN/CREATININE RATIO 12.9 (9-20); CALCIUM 8.5 mg/dL (8.6-10.2); CARBON DIOXIDE,CO2 28 mmol/L (21-32); CHLORIDE,CL 103 mmol/L (100-110); CREATININE 0.7 mg/dL (0.55-1.02); ESTIMATED GFR 120 mL/min (>60); GLUCOSE RANDOM 74 mg/dL (80-116); SODIUM,NA 136 mmol/L (135-145)
[2023-05-13 21:45] LABS: A/G RATIO 0.9; ALANINE AMINOTRANSFERASE,ALT 27 U/L (12-36); ALBUMIN 3.3 g/dL (3.5-5.2); ALKALINE PHOSPHATASE 98 IU/L (56-112); ASPARTATE AMNIOTRANSFERASE,AST 13 IU/L (5-25); BILIRUBIN TOTAL 0.4 mg/dL (0.1-1.3); PROTEIN TOTAL,TP 7.2 g/dL (6.0-8.0)
[2023-05-13] MEDS: hydrOXYzine HCl 50 MG/ML SDV IM ONE (22:27)
[2023-05-13] MEDS: HYDROmorphone 2 MG/ML SDV IM ONE (22:27)
[2023-05-13 22:38] VITALS: BP 133/84; PULSE 78
== END 2023-05-13 22:47 | disposition home or self-care (01) ==
LOC: FB.ED 20:59
DX: K80.80 Other cholelithiasis without obstruction (principal)
CPT/HCPCS: 36415; 80053; 83690; 85025; J1170; J3410; 96372; 99283; 99284

== ENCOUNTER 2023-06-01 13:11 | Emergency (ER) | payer OTHER ==
[2023-06-01 14:04] LABS: BASOPHILS PERCENT AUTO 0.5 % (0.2-1.5); EOSINOPHILS ABSOLUTE AUTO 0.1 x10-3/uL (0.0-0.8); EOSINOPHILS PERCENT AUTO 1.4 % (0.6-8.1); HEMOGLOBIN 11.7 g/dL (11.4-15.5); LYMPHOCYTES ABSOLUTE AUTO 1.6 x10-3/uL (1.0-4.4); LYMPHOCYTES PERCENT AUTO 21.9 % (18.4-52.1); MEAN CORPUSCULAR HEMOGLOBIN 28.4 pg (23.9-33.9); MEAN CORPUSCULAR HGB CONC 33.4 g/dL (31.9-34.8); MEAN CORPUSCULAR VOLUME 85.1 fL (76.7-100.5); MEAN PLATELET VOLUME 7.7 fL (7.1-12.4); MONOCYTES ABSOLUTE AUTO 0.4 x10-3/uL (0.3-1.0); MONOCYTES PERCENT AUTO 5.9 % (4.4-15.7); NEUTROPHILS PERCENT AUTO 70.3 % (30.8-76.2); PLATELET COUNT,PLT 340 x10(3)uL (151-488); RED BLOOD CELL COUNT 4.12 x10(6)uL (3.60-5.20); RED CELL DISTRIBUTION WIDTH 17.3 % (12.3-16.5); WHITE BLOOD CELL COUNT,WBC 7.1 x10-3/uL (3.0-10.3)
[2023-06-01 14:11] LABS: BLOOD UREA NITROGEN,BUN 7 mg/dL (7-18); BUN/CREATININE RATIO 8.8 (9-20); C-REACTIVE PROTEIN 0.45 mg/dL (<0.33); CARBON DIOXIDE,CO2 27 mmol/L (21-32); CHLORIDE,CL 105 mmol/L (100-110); CREATININE 0.8 mg/dL (0.55-1.02); EST CRCL DRUG DOSING (CG) 93.37 mL/min; ESTIMATED GFR 102 mL/min (>60); GLUCOSE RANDOM 96 mg/dL (80-116); POTASSIUM,K 3.9 mmol/L (3.5-5.3); SODIUM,NA 141 mmol/L (135-145)
[2023-06-01 14:18] LABS: A/G RATIO 0.9; ALANINE AMINOTRANSFERASE,ALT 22 U/L (12-36); ALBUMIN 3.5 g/dL (3.5-5.2); ALKALINE PHOSPHATASE 109 IU/L (56-112); ASPARTATE AMNIOTRANSFERASE,AST 16 IU/L (5-25); BILIRUBIN TOTAL 0.2 mg/dL (0.1-1.3); PROTEIN TOTAL,TP 7.6 g/dL (6.0-8.0)
[2023-06-01] MEDS ORDERED: Ketorolac 30 MG/ML SDV IM ONE (14:34)
[2023-06-01] MEDS ORDERED: Metoclopramide 10 MG/2 ML SDV IM ONE (14:34)
[2023-06-01 16:03] VITALS: BP 115/80; PULSE 68
[2023-06-03 10:21] LABS: APTIMA MEDIA TYPE Urine; C. TRACHOMATIS BY TMA Negative (Negative); N. GONORRHOEAE BY TMA Negative (Negative); SPECIMEN SOURCE Urine
== END 2023-06-01 16:20 | disposition home or self-care (01) ==
LOC: FB.ED 13:11
DX: S01.131A Puncture wound without foreign body of right eyelid and periocular area, initial encounter (principal); K80.50 Calculus of bile duct without cholangitis or cholecystitis without obstruction; K04.7 Periapical abscess without sinus; X58.XXXA Exposure to other specified factors, initial encounter
CPT/HCPCS: 36415; 80053; 81025; 83690; 83735; 84484; 85025; 86140; 87491; 87591; 93005; 96372; 99285; J1885; J2765

== ENCOUNTER 2023-06-06 22:15 | Emergency (ER) | payer OTHER ==
[2023-06-06 23:56] LABS: BASOPHILS ABSOLUTE AUTO 0.1 x10-3/uL (0.0-0.1); BASOPHILS PERCENT AUTO 0.5 % (0.2-1.5); EOSINOPHILS PERCENT AUTO 0.2 % (0.6-8.1); HEMATOCRIT 37.3 % (34.2-48.2); HEMOGLOBIN 12.2 g/dL (11.4-15.5); LYMPHOCYTES ABSOLUTE AUTO 1.3 x10-3/uL (1.0-4.4); LYMPHOCYTES PERCENT AUTO 10.2 % (18.4-52.1); MEAN CORPUSCULAR HEMOGLOBIN 27.5 pg (23.9-33.9); MEAN CORPUSCULAR HGB CONC 32.6 g/dL (31.9-34.8); MEAN CORPUSCULAR VOLUME 84.2 fL (76.7-100.5); MEAN PLATELET VOLUME 7.5 fL (7.1-12.4); MONOCYTES ABSOLUTE AUTO 0.6 x10-3/uL (0.3-1.0); MONOCYTES PERCENT AUTO 4.9 % (4.4-15.7); NEUTROPHILS ABSOLUTE AUTO 10.8 x10-3/uL (1.5-6.3); NEUTROPHILS PERCENT AUTO 84.2 % (30.8-76.2); PLATELET COUNT,PLT 412 x10(3)uL (151-488); RED BLOOD CELL COUNT 4.43 x10(6)uL (3.60-5.20); RED CELL DISTRIBUTION WIDTH 16.7 % (12.3-16.5); WHITE BLOOD CELL COUNT,WBC 12.8 x10-3/uL (3.0-10.3)
[2023-06-07 00:03] LABS: BLOOD UREA NITROGEN,BUN 8 mg/dL (7-18); CARBON DIOXIDE,CO2 22 mmol/L (21-32); CHLORIDE,CL 106 mmol/L (100-110); CREATININE 0.5 mg/dL (0.55-1.02); ESTIMATED GFR 130 mL/min (>60); GLUCOSE RANDOM 101 mg/dL (80-116); SODIUM,NA 140 mmol/L (135-145)
[2023-06-07 00:04] LABS: BILIRUBIN,URINE NEGATIVE (NEGATIVE); GLUCOSE,URINE NORMAL (NORMAL); KETONES,URINE NEGATIVE (NEGATIVE); LEUKOCYTE ESTERASE,URINE NEGATIVE (NEGATIVE); NITRITE,URINE NEGATIVE (NEGATIVE); OCCULT BLOOD,URINE NEGATIVE (NEGATIVE); PROTEIN,URINE NEGATIVE (NEGATIVE); UROBILINOGEN,URINE NORMAL (NEGATIVE)
[2023-06-07 00:05] LABS: C-REACTIVE PROTEIN 0.51 mg/dL (<0.33)
[2023-06-07 00:09] LABS: A/G RATIO 0.8; ALANINE AMINOTRANSFERASE,ALT 25 U/L (12-36); ALBUMIN 3.6 g/dL (3.5-5.2); ALKALINE PHOSPHATASE 114 IU/L (56-112); ASPARTATE AMNIOTRANSFERASE,AST 21 IU/L (5-25); BILIRUBIN TOTAL 0.1 mg/dL (0.1-1.3); PROTEIN TOTAL,TP 8.1 g/dL (6.0-8.0)
[2023-06-07 00:12] LABS: APPEARANCE,URINE CLEAR (CLEAR); BACTERIA,URINE OCCASIONAL (NS); COLOR,URINE YELLOW (YELLOW); RBC,URINE 0-5 (0-5); SQUAMOUS EPITHELIAL CELLS,UR OCCASIONAL (NS,R,O); WBC,URINE 0-5 (0-5)
[2023-06-07 00:12] LABS: ETHANOL BLOOD MEDICAL 0.16 % (<0.03)
[2023-06-07] MEDS ORDERED: Amoxicillin/Clavulanate K 875-125 MG Tab PO ONE (02:39)
[2023-06-07] MEDS ORDERED: Ketorolac 30 MG/ML SDV IM ONE (02:40)
[2023-06-07 02:59] VITALS: PULSE 98
[2023-06-07 03:32] VITALS: BP 124/77
== END 2023-06-07 03:20 | disposition home or self-care (01) ==
LOC: FB.ED 22:15
DX: S06.0X1A Concussion with loss of consciousness of 30 minutes or less, initial encounter (principal); S00.83XA Contusion of other part of head, initial encounter; S80.11XA Contusion of right lower leg, initial encounter; S80.12XA Contusion of left lower leg, initial encounter; M79.641 Pain in right hand; F10.129 Alcohol abuse with intoxication, unspecified; K04.7 Periapical abscess without sinus; K80.50 Calculus of bile duct without cholangitis or cholecystitis without obstruction; F17.200 Nicotine dependence, unspecified, uncomplicated; Y90.6 Blood alcohol level of 120-199 mg/100 ml; Y04.0XXA Assault by unarmed brawl or fight, initial encounter
CPT/HCPCS: 36415; 70450; 70486; 72125; 73130; 80053; 80307; 81001; 83690; 85025; 86140; 96372; 99284; A9270; J1885

== ENCOUNTER 2023-07-04 22:08 | Emergency (ER) | payer OTHER ==
[2023-07-04] MEDS ORDERED: hydrOXYzine HCl 50 MG/ML SDV IM ONE (22:26)
[2023-07-04] MEDS ORDERED: Morphine 10 MG/ML SDV IM ONE (22:26)
[2023-07-04 22:54] VITALS: BP 131/94; PULSE 92
== END 2023-07-04 22:35 | disposition home or self-care (01) ==
LOC: FB.ED 22:08
DX: K80.20 Calculus of gallbladder without cholecystitis without obstruction (principal)
CPT/HCPCS: 96372; 99283; J2270; J3410

== ENCOUNTER 2023-08-04 22:00 | Emergency (ER) | payer OTHER ==
[2023-08-04 22:36] LABS: BASOPHILS PERCENT AUTO 0.6 % (0.2-1.5); EOSINOPHILS ABSOLUTE AUTO 0.1 x10-3/uL (0.0-0.8); EOSINOPHILS PERCENT AUTO 0.9 % (0.6-8.1); HEMATOCRIT 31.9 % (34.2-48.2); HEMOGLOBIN 10.3 g/dL (11.4-15.5); LYMPHOCYTES ABSOLUTE AUTO 1.6 x10-3/uL (1.0-4.4); LYMPHOCYTES PERCENT AUTO 19.6 % (18.4-52.1); MEAN CORPUSCULAR HEMOGLOBIN 25.3 pg (23.9-33.9); MEAN CORPUSCULAR HGB CONC 32.2 g/dL (31.9-34.8); MEAN CORPUSCULAR VOLUME 78.6 fL (76.7-100.5); MEAN PLATELET VOLUME 7.2 fL (7.1-12.4); MONOCYTES ABSOLUTE AUTO 0.6 x10-3/uL (0.3-1.0); MONOCYTES PERCENT AUTO 6.9 % (4.4-15.7); NEUTROPHILS ABSOLUTE AUTO 5.7 x10-3/uL (1.5-6.3); PLATELET COUNT,PLT 360 x10(3)uL (151-488); RED BLOOD CELL COUNT 4.05 x10(6)uL (3.60-5.20); RED CELL DISTRIBUTION WIDTH 16.2 % (12.3-16.5)
[2023-08-04 22:41] LABS: BLOOD UREA NITROGEN,BUN 15 mg/dL (7-18); BUN/CREATININE RATIO 16.7 (9-20); CALCIUM 8.6 mg/dL (8.6-10.2); CARBON DIOXIDE,CO2 26 mmol/L (21-32); CHLORIDE,CL 103 mmol/L (100-110); CREATININE 0.9 mg/dL (0.55-1.02); ESTIMATED GFR 89 mL/min (>60); GLUCOSE RANDOM 95 mg/dL (80-116); POTASSIUM,K 3.4 mmol/L (3.5-5.3); SODIUM,NA 137 mmol/L (135-145)
[2023-08-04 22:47] LABS: ALANINE AMINOTRANSFERASE,ALT 24 U/L (12-36); ALBUMIN 3.7 g/dL (3.5-5.2); ALKALINE PHOSPHATASE 94 IU/L (56-112); ASPARTATE AMNIOTRANSFERASE,AST 17 IU/L (5-25); BILIRUBIN TOTAL 0.3 mg/dL (0.1-1.3); PROTEIN TOTAL,TP 7.4 g/dL (6.0-8.0)
[2023-08-04] MEDS: Sodium Chloride 0.9% 10 ML Syringe FLUSH PRN (22:50)
[2023-08-04] MEDS: Morphine 4 MG/ML VIAL IVPUSH ONE (22:50)
[2023-08-04] MEDS: Iopamidol 755 Mg/ML 100 ML Bottle IV ONE (23:20)
[2023-08-04 23:48] LABS: APPEARANCE,URINE SLIGHTLY CLOUDY (CLEAR); BACTERIA,URINE FEW (NS); BILIRUBIN,URINE NEGATIVE (NEGATIVE); COLOR,URINE YELLOW (YELLOW); GLUCOSE,URINE NORMAL (NORMAL); KETONES,URINE 15 mg/dL (NEGATIVE); LEUKOCYTE ESTERASE,URINE LARGE (NEGATIVE); NITRITE,URINE NEGATIVE (NEGATIVE); OCCULT BLOOD,URINE LARGE (NEGATIVE); PROTEIN,URINE NEGATIVE (NEGATIVE); RBC,URINE 0-5 (0-5); SQUAMOUS EPITHELIAL CELLS,UR FEW (NS,R,O); UROBILINOGEN,URINE NORMAL (NEGATIVE)
[2023-08-05] MEDS: Sulfamethoxazole/Trimethoprim 800-160 MG Tab PO ONE (00:12)
[2023-08-05] MEDS: traMADol 50 MG Tab PO STA (00:13)
[2023-08-05 00:47] VITALS: BP 123/85; PULSE 82
== END 2023-08-05 00:28 | disposition home or self-care (01) ==
LOC: FB.ED 22:00
DX: R07.9 Chest pain, unspecified (principal); N39.0 Urinary tract infection, site not specified
CPT/HCPCS: 36415; 71045; 74177; 80053; 81001; 84484; 85025; 85379; 87086; 93005; 96374; 99285-25; A9270-GY; J2270; J3490; Q9967

== ENCOUNTER 2023-11-23 14:56 | Emergency (ER) | payer OTHER ==
[2023-11-23] MEDS: SUMAtriptan 6 MG/0.5 ML SDV SUBCUT ONE (15:53)
[2023-11-23] MEDS: Ketorolac 30 MG/ML SDV IM ONE (15:54)
[2023-11-23] MEDS: Ondansetron 4 MG Tab.DIS PO STA (15:58)
[2023-11-23] MEDS: Acetaminophen/HYDROcodone 325-5 MG Tab PO ONE (16:25)
[2023-11-23 17:38] VITALS: BP 116/74; PULSE 77
== END 2023-11-23 16:27 | disposition home or self-care (01) ==
LOC: FB.ED 14:56
DX: G43.909 Migraine, unspecified, not intractable, without status migrainosus (principal); K05.10 Chronic gingivitis, plaque induced; F17.210 Nicotine dependence, cigarettes, uncomplicated; Z86.16 Personal history of COVID-19; Z79.899 Other long term (current) drug therapy
CPT/HCPCS: 96372; 99283; A9270-GY; J1885; J3030; Q0162

== ENCOUNTER 2024-03-03 01:05 | Emergency (ER) | payer OTHER ==
[2024-03-03 01:24] VITALS: BP 123/72; PULSE 108
== END 2024-03-03 01:58 ==
LOC: FB.ED 01:05
DX: F10.921 Alcohol use, unspecified with intoxication delirium (principal); Z86.16 Personal history of COVID-19
CPT/HCPCS: 99283

== ENCOUNTER 2024-05-12 23:24 | Emergency (ER) | payer OTHER ==
[2024-05-12 23:44] VITALS: PULSE 80
[2024-05-13 00:22] LABS: CORONAVIRUS COVID-19 NAA NEGATIVE (NEGATIVE)
[2024-05-13 00:44] LABS: STREP A BY PCR NOT DETECTED (NOT DETECT)
[2024-05-13] MEDS: Ibuprofen 200 MG Tab PO ONE (00:56)
[2024-05-13] MEDS: Acetaminophen 500 MG Tab PO ONE (00:56)
[2024-05-13 01:03] VITALS: BP 145/89
== END 2024-05-13 01:01 | disposition home or self-care (01) ==
LOC: FB.ED 23:24
DX: J06.9 Acute upper respiratory infection, unspecified (principal); J02.9 Acute pharyngitis, unspecified; F17.210 Nicotine dependence, cigarettes, uncomplicated; Z86.16 Personal history of COVID-19
CPT/HCPCS: 87651-QW; 99283; A9270-GY; U0002

== ENCOUNTER 2024-06-29 21:43 | Emergency (ER) | payer OTHER ==
[2024-06-29 21:56] VITALS: BP 105/75; PULSE 89
[2024-06-29] MEDS: Acetaminophen 325 MG Tab PO ONE (22:09)
== END 2024-06-29 22:11 | disposition home or self-care (01) ==
LOC: FB.ED 21:43
DX: B34.9 Viral infection, unspecified (principal); Z86.16 Personal history of COVID-19
CPT/HCPCS: 99282; 99283; A9270-GY

== ENCOUNTER 2024-11-14 20:04 | Emergency (ER) | payer OTHER ==
[2024-11-14] MEDS: Alum Hydroxide/Mag Hydroxide 15 ML, Lidocaine 2% 15 ML PO ONE (20:38)
[2024-11-14 21:09] LABS: BILIRUBIN,URINE NEGATIVE (NEGATIVE); GLUCOSE,URINE NORMAL (NORMAL); KETONES,URINE NEGATIVE (NEGATIVE); LEUKOCYTE ESTERASE,URINE NEGATIVE (NEGATIVE); NITRITE,URINE NEGATIVE (NEGATIVE); OCCULT BLOOD,URINE LARGE (NEGATIVE); PROTEIN,URINE NEGATIVE (NEGATIVE); UROBILINOGEN,URINE NORMAL (NEGATIVE)
[2024-11-14 21:12] LABS: APPEARANCE,URINE CLEAR (CLEAR); COLOR,URINE YELLOW (YELLOW)
[2024-11-14] MEDS: Ketorolac 30 MG/ML SDV IM ONE (21:13)
[2024-11-14 21:20] LABS: BACTERIA,URINE OCCASIONAL (NS); RBC,URINE 0-5 (0-5); SQUAMOUS EPITHELIAL CELLS,UR FEW (NS,R,O); WBC,URINE 0-5 (0-5)
[2024-11-14 21:21] LABS: AMORPHOUS SEDIMENT,URINE MODERATE
[2024-11-14 21:50] VITALS: BP 122/87; PULSE 86
== END 2024-11-14 21:47 | disposition home or self-care (01) ==
LOC: FB.ED 20:04
DX: M25.511 Pain in right shoulder (principal); R10.13 Epigastric pain; F17.210 Nicotine dependence, cigarettes, uncomplicated; Z86.16 Personal history of COVID-19
CPT/HCPCS: 81001; 96372; 99283; 99284; A9270-GY; J1885

== ENCOUNTER 2025-03-01 23:51 | Emergency (ER) | payer MEDICAID ==
[2025-03-02] MEDS: Naloxone 0.4 MG/ML SDV IVPUSH PRN (00:01)
[2025-03-02 00:21] LABS: BASOPHILS ABSOLUTE AUTO 0.0 x10-3/uL (0.0-0.1); BASOPHILS PERCENT AUTO 0.3 % (0.2-1.5); EOSINOPHILS ABSOLUTE AUTO 0.1 x10-3/uL (0.0-0.8); EOSINOPHILS PERCENT AUTO 0.9 % (0.6-8.1); LYMPHOCYTES ABSOLUTE AUTO 2.6 x10-3/uL (1.0-4.4); LYMPHOCYTES PERCENT AUTO 35.7 % (18.4-52.1); MEAN PLATELET VOLUME 7.3 fL (7.1-12.4); MONOCYTES ABSOLUTE AUTO 0.4 x10-3/uL (0.3-1.0); MONOCYTES PERCENT AUTO 6.1 % (4.4-15.7); NEUTROPHILS ABSOLUTE AUTO 4.1 x10-3/uL (1.5-6.3); NEUTROPHILS PERCENT AUTO 57.0 % (30.8-76.2); PLATELET COUNT,PLT 479 x10(3)uL (151-488); RED CELL DISTRIBUTION WIDTH 18.5 % (12.3-16.5); WHITE BLOOD CELL COUNT,WBC 7.1 x10-3/uL (3.0-10.3)
[2025-03-02 00:28] LABS: GLUCOSE,URINE NORMAL (NORMAL); OCCULT BLOOD,URINE MODERATE (NEGATIVE)
[2025-03-02 00:29] LABS: BLOOD UREA NITROGEN,BUN 6 mg/dL (7-18); CARBON DIOXIDE,CO2 25 mmol/L (21-32); CHLORIDE,CL 105 mmol/L (100-110); CREATININE 0.7 mg/dL (0.55-1.02); ESTIMATED GFR 119 mL/min (>60); GLUCOSE RANDOM 139 mg/dL (80-116); POTASSIUM,K 3.5 mmol/L (3.5-5.3); SODIUM,NA 141 mmol/L (135-145)
[2025-03-02 00:40] LABS: AMPHETAMINES SCREEN, URINE POSITIVE (NEGATIVE); BUPRENORPHINE SCREEN,URINE NEGATIVE (NEGATIVE); METHADONE SCREEN, URINE NEGATIVE (NEGATIVE); METHAMPHETAMINE SCREEN, URINE POSITIVE (NEGATIVE); OXYCODONE SCREEN,URINE NEGATIVE (NEGATIVE)
[2025-03-02 00:41] LABS: A/G RATIO 0.8; ALANINE AMINOTRANSFERASE,ALT 24 U/L (12-36); ASPARTATE AMNIOTRANSFERASE,AST 19 IU/L (5-25); BILIRUBIN TOTAL 0.2 mg/dL (0.1-1.3); PROTEIN TOTAL,TP 7.4 g/dL (6.0-8.0); RED BLOOD CELL COUNT 4.57 x10(6)uL (3.60-5.20)
[2025-03-02 00:44] LABS: APPEARANCE,URINE CLEAR (CLEAR); SQUAMOUS EPITHELIAL CELLS,UR FEW (NS,R,O)
[2025-03-02] MEDS: Ondansetron 4 MG/2 ML SDV IVPUSH ONE ×2 (03:23→06:36)
[2025-03-02 04:12] LABS: BLOOD UREA NITROGEN,BUN 5 mg/dL (7-18); CARBON DIOXIDE,CO2 22 mmol/L (21-32); CHLORIDE,CL 112 mmol/L (100-110); CREATININE 0.6 mg/dL (0.55-1.02); EST CRCL DRUG DOSING (CG) 117.31 mL/min; ESTIMATED GFR 123 mL/min (>60); GLUCOSE RANDOM 125 mg/dL (80-116); POTASSIUM,K 3.6 mmol/L (3.5-5.3); SODIUM,NA 146 mmol/L (135-145)
[2025-03-02 04:25] LABS: A/G RATIO 0.8; ALANINE AMINOTRANSFERASE,ALT 23 U/L (12-36); ASPARTATE AMNIOTRANSFERASE,AST 16 IU/L (5-25); BILIRUBIN TOTAL 0.2 mg/dL (0.1-1.3); PROTEIN TOTAL,TP 6.2 g/dL (6.0-8.0)
[2025-03-02] MEDS: WATER IV STA (05:11)
[2025-03-02] MEDS: DEXTROSE 5% IV STA (05:11)
[2025-03-02] MEDS: ACETYLCYSTEINE IV STA (05:11)
[2025-03-02] MEDS: DEXTROSE 5% IV ONE (06:20)
[2025-03-02] MEDS: ACETYLCYSTEINE IV ONE (06:20)
[2025-03-02] MEDS: WATER IV ONE (06:20)
[2025-03-02] MEDS: Sodium Chloride 0.9% 10 ML Syringe FLUSH PRN (06:35)
[2025-03-02 07:22] VITALS: BP 131/92; PULSE 88
== END 2025-03-02 07:15 | disposition other institution (70) ==
LOC: FB.ED 23:51
DX: T39.1X2A Poisoning by 4-Aminophenol derivatives, intentional self-harm, initial encounter (principal); S61.511A Laceration without foreign body of right wrist, initial encounter; S61.512A Laceration without foreign body of left wrist, initial encounter; S71.111A Laceration without foreign body, right thigh, initial encounter; F32.A Depression, unspecified; F10.120 Alcohol abuse with intoxication, uncomplicated; X78.9XXA Intentional self-harm by unspecified sharp object, initial encounter
CPT/HCPCS: 36415; 51701; 80053; 80143; 80179; 80307; 81001; 81025; 85025; 93005; 96361; 96365; 96366; 96375; 96376; 99285-25; A9270-GY; J0132; J2310; J2405; J7030; J7060

== ENCOUNTER 2025-08-01 07:43 | Emergency (ER) | payer MEDICAID ==
[2025-08-01 08:03] VITALS: BP 127/92; PULSE 77
[2025-08-01] MEDS ORDERED: Sodium Chloride 0.9% 10 ML Syringe FLUSH PRN (08:10)
[2025-08-01 08:27] LABS: BASOPHILS ABSOLUTE AUTO 0.1 x10-3/uL (0.0-0.1); BASOPHILS PERCENT AUTO 1.1 % (0.2-1.5); EOSINOPHILS ABSOLUTE AUTO 0.0 x10-3/uL (0.0-0.8); EOSINOPHILS PERCENT AUTO 0.8 % (0.6-8.1); LYMPHOCYTES ABSOLUTE AUTO 1.4 x10-3/uL (1.0-4.4); LYMPHOCYTES PERCENT AUTO 29.4 % (18.4-52.1); MEAN PLATELET VOLUME 7.3 fL (7.1-12.4); MONOCYTES ABSOLUTE AUTO 0.4 x10-3/uL (0.3-1.0); MONOCYTES PERCENT AUTO 7.2 % (4.4-15.7); NEUTROPHILS ABSOLUTE AUTO 3.0 x10-3/uL (1.5-6.3); NEUTROPHILS PERCENT AUTO 61.5 % (30.8-76.2); PLATELET COUNT,PLT 390 x10(3)uL (151-488); RED CELL DISTRIBUTION WIDTH 20.1 % (12.3-16.5); WHITE BLOOD CELL COUNT,WBC 4.9 x10-3/uL (3.0-10.3)
[2025-08-01] MEDS: Ondansetron 4 MG/2 ML SDV IVPUSH ONE (08:28)
[2025-08-01 08:29] LABS: BLOOD UREA NITROGEN,BUN 9 mg/dL (7-18); CARBON DIOXIDE,CO2 26 mmol/L (21-32); CHLORIDE,CL 111 mmol/L (100-110); CREATININE 0.5 mg/dL (0.55-1.02); ESTIMATED GFR 129 mL/min (>60); GLUCOSE RANDOM 102 mg/dL (80-116); POTASSIUM,K 3.8 mmol/L (3.5-5.3); SODIUM,NA 146 mmol/L (135-145)
[2025-08-01 08:31] LABS: GLUCOSE,URINE NORMAL (NORMAL); OCCULT BLOOD,URINE NEGATIVE (NEGATIVE)
[2025-08-01 08:34] LABS: APPEARANCE,URINE CLEAR (CLEAR)
[2025-08-01 08:38] LABS: BASE EXCESS VENOUS,POC -4 mmol/L (-2 - 3+); PCO2 VENOUS,POC 51 mmHg (41-51); PH VENOUS,POC 7.27 pH Units (7.32-7.43)
[2025-08-01 08:40] LABS: AMPHETAMINES SCREEN, URINE NEGATIVE (NEGATIVE); BUPRENORPHINE SCREEN,URINE NEGATIVE (NEGATIVE); METHADONE SCREEN, URINE NEGATIVE (NEGATIVE); METHAMPHETAMINE SCREEN, URINE NEGATIVE (NEGATIVE); OXYCODONE SCREEN,URINE NEGATIVE (NEGATIVE)
[2025-08-01 08:43] LABS: A/G RATIO 0.9; ALANINE AMINOTRANSFERASE,ALT 27 U/L (12-36); ASPARTATE AMNIOTRANSFERASE,AST 22 IU/L (5-25); BILIRUBIN TOTAL 0.2 mg/dL (0.1-1.3); PROTEIN TOTAL,TP 7.6 g/dL (6.0-8.0)
[2025-08-01 08:44] LABS: RED BLOOD CELL COUNT 4.36 x10(6)uL (3.60-5.20)
== END 2025-08-01 13:04 ==
LOC: FB.ED 07:43
DX: S61.512A Laceration without foreign body of left wrist, initial encounter (principal); T50.902A Poisoning by unspecified drugs, medicaments and biological substances, intentional self-harm, initial encounter; R56.9 Unspecified convulsions; F10.129 Alcohol abuse with intoxication, unspecified; E86.0 Dehydration; Z86.16 Personal history of COVID-19; W26.8XXA Contact with other sharp object(s), not elsewhere classified, initial encounter
CPT/HCPCS: 36415; 70450; 71045; 80053; 80143; 80179; 80307; 81003; 81025; 83605; 83735; 85025; 93005; 93010; 96361; 96374; 99285; J2405; J7030